=== PATIENT | male | born 1945 | race Two or more races ===

== ENCOUNTER 2018-12-30 12:28 | Emergency (ER) | payer MEDICAID ==
[~2018-12-30] VITALS: Ht 172.7 cm; Wt 88.5 kg
--- NOTE | 2018-12-30 12:40 | NUR ---
ED Nurse Note: Patient walked into ED c/o abdominal pain 01/22 for 1 week. patient denies having any nausea or vomiting. patient is ambulatory, a/o x4 breathing unlabored and even. patient reports he just recently came back from [place] on 12/27/18
[2018-12-30 12:47] VITALS: BP 131/71
[2018-12-30] MEDS ORDERED: Isovue-300 100ml vial INJ PRN (13:00)
[2018-12-30] MEDS ORDERED: OMEPRAZOLE40 M1 ORAL (13:06)
[2018-12-30] MEDS ORDERED: FLOMAX0.4 MG ORAL (13:06)
[2018-12-30] MEDS ORDERED: LISINOPRIL20 MG ORAL (13:06)
--- NOTE | 2018-12-30 13:15 | NUR ---
ED Nurse Note: Consent for CT with contrast obtained from the son, The patient gave verbal consent as well.
[2018-12-30 13:25] LABS: APPEARANCE,URINE CLOUDY; BILIRUBIN, URINE NEGATIVE (NEGATIVE); GLUCOSE, URINE (UA) NEGATIVE (NEGATIVE); KETONES,URINE 1+ (NEGATIVE); LEUKOCYTE ESTERASE ,URINE 1+ (NEGATIVE); NITRITE,URINE NEGATIVE (NEGATIVE); PH,URINE 5 (4.5-8.0); PROTEIN,URINE 2+ (NEGATIVE); UROBILINOGEN,URINE NORMAL MG/DL (0.0-1.0)
[2018-12-30 13:29] LABS: BASOPHILS % (AUTO) 1.2 % (0.0-2.0); EOSINOPHILS % (AUTO) 0.3 % (0.0-3.0); HEMATOCRIT 43.8 % (42.0-52.0); HEMOGLOBIN 14.9 G/DL (14.2-18.0); LYMPHOCYTES % (AUTO) 11.4 % (20.0-45.0); MEAN CORPUSCULAR VOLUME 92 FL (80-99); MONOCYTES % (AUTO) 8.4 % (1.0-10.0); NEUTROPHILS % (AUTO) 78.8 % (45.0-75.0); PLATELET COUNT 221 K/UL (150-450); RED BLOOD COUNT 4.75 M/UL (4.70-6.10); RED CELL DISTRIBUTION WIDTH 11.9 % (11.6-14.8); WHITE BLOOD COUNT 9.4 K/UL (4.8-10.8)
[2018-12-30 13:36] LABS: COLOR,URINE YELLOW
[2018-12-30 13:45] LABS: ANION GAP 11 mmol/L (5-15); BLOOD UREA NITROGEN 13 mg/dL (7-18); CALCIUM 9.4 MG/DL (8.5-10.1); CARBON DIOXIDE 27 MMOL/L (21-32); CHLORIDE 102 MMOL/L (98-107); CREATININE 1.2 MG/DL (0.55-1.30); POTASSIUM 3.8 MMOL/L (3.5-5.1); SODIUM 139 MMOL/L (136-145)
[2018-12-30 13:49] LABS: ALANINE AMINOTRANSFERASE 31 U/L (12-78); ALBUMIN 4.4 G/DL (3.4-5.0); ALBUMIN/GLOBULIN RATIO 1.4 (1.0-2.7); ALKALINE PHOSPHATASE 57 U/L (46-116); ASPARTATE AMINO TRANSFERASE 28 U/L (15-37); BILIRUBIN,TOTAL 0.4 MG/DL (0.2-1.0)
--- NOTE | 2018-12-30 13:55 | NUR ---
ED Nurse Note: patient went to CT
--- NOTE | 2018-12-30 14:12 | NUR ---
ED Nurse Note: patient came back from CT, son at bedside
--- NOTE | 2018-12-30 14:36 | Emergency Room Report ---
History of Present Illness General Chief Complaint: Diarrhea Source: Patient Present Illness HPI 73-year-old male with history of hyperlipidemia and gastroesophageal disease currently controlled with medication here complaining of 7 days of multiple bouts of diarrhea on daily basis. Patient is reporting some epigastric pain rating it 5 out of 10 without radiation denying nausea vomiting. Patient reports that he started having abdominal pain and diarrhea after eating a street taco 1 week ago. Denies alcohol intake, smoking, drug use. Denies any new medication. Denies recent travel, chest pain, shortness of breath, fever and chills, palpitation, lethargic, syncope. Patient reports that he has been having 3-4 bouts of nonbloody diarrhea every day and has been able to take oral hydration. Allergies: Coded Allergies: No Known Allergies (Unverified , 12/30/18) Patient History Past Medical History: see triage record Past Surgical History: unable to obtain Pertinent Family History: none Immunizations: UTD Reviewed Nursing Documentation: PMH: Agreed; PSxH: Agreed Nursing Documentation-PMH Past Medical History: No History, Except For Hx Hypertension: Yes Review of Systems All Other Systems: negative except mentioned in HPI Physical Exam Vital Signs Date Time Temp Pulse Resp B/P (MAP) Pulse Ox O2 Delivery O2 Flow Rate FiO2 12/30/18 12:32 98.8 93 17 134/74 (94) 98 Room Air Sp02 EP Interpretation: reviewed, normal General Appearance: normal inspection, well appearing, no apparent distress, alert, GCS 15 Head: normocephalic, atraumatic Eyes: bilateral eye normal inspection, bilateral eye PERRL ENT: normal ENT inspection, hearing grossly normal, normal pharynx Neck: normal inspection, full range of motion, supple Respiratory: normal inspection, chest non-tender, lungs clear, normal breath sounds, no respiratory distress, no wheezing Cardiovascular #1: normal inspection, regular rate, rhythm, no murmur, normal capillary refill Gastrointestinal: normal bowel sounds, no mass, no organomegaly, no peritonitis , no bruit, non-distended, guarding - Epigastric Rectal: deferred Musculoskeletal: normal inspection, back normal, digits/nails normal Neurologic: normal inspection, alert, oriented x3 Psychiatric: normal inspection, judgement/insight normal, memory normal Skin: normal inspection, normal color, no rash, warm/dry, palpation normal Lymphatic: normal inspection, no adenopathy Medical Decision Making PA Attestation All my diagnosis and treatment plans were reviewed ad discussed with my supervising physician Dr. Mtz Diagnostic Impression: Primary Impression: Colitis Additional Impressions: Prostatitis GERD (gastroesophageal reflux disease) ER Course 73-year-old male with history of hyperlipidemia and gastroesophageal disease currently controlled with medication here complaining of 7 days of multiple bouts of diarrhea on daily basis. Patient is reporting some epigastric pain rating it 5 out of 10 without radiation denying nausea vomiting. Patient reports that he started having abdominal pain and diarrhea after eating a street taco 1 week ago. Denies alcohol intake, smoking, drug use. Denies any new medication. Denies recent travel, chest pain, shortness of breath, fever and chills, palpitation, lethargic, syncope. Patient reports that he has been having 3-4 bouts of nonbloody diarrhea every day and has been able to take oral hydration. Ddx considered but are not limited to: appendicitis, cholycisitis, gastritis, gasthroentritis, UTI, pylonephritis, SBO, diverticulitis, influenza with GI manifestation, OK, prostatitis, Vital signs: are WNL, pt. is afebrile H&PE are most consistent with: Colitis, prostatitis, GERD ORDERS: abdominal CT, abdominal pain set, EKG, Pepcid. Omeprazole, Cipro ED INTERVENTIONS: Pepcid NS bolus DISCHARGE: At this time pt. is stable for d/c to home. Will provide printed patient care instructions, and any necessary prescriptions. Care plan and follow up instructions have been discussed with the patient prior to discharge. After talking to the radiologist patient has mild colitis without complication patient to follow-up with his primary care physician as well as urologist due to prostate infection take medication as directed I explained to Cipro may increase his diarrhea however it is necessary for his prostatitis CT/MRI/US Diagnostic Results CT/MRI/US Diagnostic Results : Imaging Test Ordered: Abdominal CT no contrast Impression collitis with no other abnormality I spoke on the phone with radiologist Last Vital Signs Date Time Temp Pulse Resp B/P (MAP) Pulse Ox O2 Delivery O2 Flow Rate FiO2 12/30/18 12:47 98.8 98 16 131/71 98 Room Air Disposition: HOME, SELF-CARE Condition: Stable Scripts Omeprazole (OMEPRAZOLE) 20 Mg Capsule. 20 MG ORAL DAILY, #30 CAP Prov: Wyatt Beard 12/30/18 Ciprofloxacin* (CIPRO*) 500 Mg Tablet 500 MG PO BID for 14 Days, #28 TAB Prov: Wyatt Beard 12/30/18 Referrals: NON PHYSICIAN (PCP) Patient Instructions: Gastritis, Adult, Prostatitis, [id number], Viral Gastroenteritis, Adult Additional Instructions: Take medication as directed follow-up with a primary care provider for testing of possible H. pylori take your antibiotic for your prostate infection follow- up with your urologist keep a BRAT diet entailing banana rice applesauce piece of toast avoid spicy food avoid acidic food avoid red meats Wyatt Beard Dec 30, 2018 14:36
[2018-12-30] MEDS ORDERED: CIPRO500 MG PO (14:37)
[2018-12-30] MEDS ORDERED: OMEPRAZOLE20 M2 ORAL (14:37)
--- NOTE | 2018-12-30 14:44 | Diagnostic Imaging Report ---
Clinical Indication: Abdominal pain for one week Technique: No oral contrast utilized, per emergency room physician request IV administration nonionic contrast. Venous phase spiral acquisition obtained through the abdomen and pelvis. Multiplanar reconstructions were generated. Total dose length product 870.19 mGycm. CTDIvol(s) 17.25 mGy. Dose reduction achieved using automated exposure control Comparison: none Findings: Lack of enteric contrast limits assessment of the GI tract. Appendix is slightly prominent, measuring up to 7 mm in diameter and demonstrating slight mural enhancement. There is no rodriguez infiltration of the periappendiceal fat. There is a equivocal slight wall thickening of the ascending colon and slight infiltration of the pericolonic fat adjacent to the ascending colon. There is also suggestion of mild wall thickening of the sigmoid colon, which is fluid-filled. There is no perisigmoid inflammation. No evidence of diverticulosis or diverticulitis. Prominent but not frankly dilated proximal small bowel loops are noted, without evidence of definite transition point. The distal ileum is also slightly prominent. No free or loculated intraperitoneal gas or fluid is evident. Calcifications, presumably granulomatous nodes, are seen in the mesenteric root. The distal esophagus and stomach are unremarkable.. The liver is mildly hypoattenuating. No focal abnormality. The gallbladder contains a gallstone. No biliary ductal dilatation. The pancreas, spleen, adrenals are unremarkable. There is an accessory splenule. The right kidney demonstrates an exophytic subcentimeter low-attenuation lesion which is too small to characterize. The right kidney demonstrates an interpolar region cyst and a subcentimeter lower pole low-attenuation lesion which is too small to characterize. No retroperitoneal or mesenteric mass or adenopathy. The prostate is markedly enlarged, measuring 6 cm transverse diameter. The included lung bases demonstrate a calcified granuloma within the right middle lobe. There are dependent atelectatic changes. The bones are unremarkable Impression: Limited assessment of the GI tract, due to lack of enteric contrast administration Suggestion of slight wall thickening of the ascending and sigmoid colon, could indicate colitis. Correlate with clinical findings Slightly prominent appendix. Doubtful significance, very early acute appendicitis not completely excludable. Possible mild fatty liver Cholelithiasis Prostatomegaly Evidence old granulomatous disease within the right lung and mesenteric root Right renal cysts. Subcentimeter low-attenuation renal lesions, too small to characterize, most likely benign simple cysts Pulmonary atelectatic changes Findings discussed by phone with Nurse practitioner Wyatt Beard The CT scanner at [facility] is accredited by the [employer] and the scans are performed using protocols designed to limit radiation exposure to as low as reasonably achievable to attain images of sufficient resolution adequate for diagnostic evaluation.
[2018-12-30 15:05] VITALS: BP 128/68
--- NOTE | 2018-12-30 15:05 | NUR ---
ER DISCHARGE NOTE: Patient is cleared to be discharged per JOSE ELIAS ALLAN, pt is aox4, on room air, with stable vital signs. pt was given dc and prescription instructions, pt was able to verbalize understanding, pt id band and iv site removed without complications. pt is able to ambulate with steady gait with his son. pt took all belongings.
== END 2018-12-30 15:05 | disposition home or self-care (01) ==
LOC: EMR 13:00
DX: K52.9 Noninfective gastroenteritis and colitis, unspecified (principal); K21.9 Gastro-esophageal reflux disease without esophagitis; N41.9 Inflammatory disease of prostate, unspecified; E78.5 Hyperlipidemia, unspecified; I10 Essential (primary) hypertension
CPT/HCPCS: 36415; 74177; 80053; 81003; 83690; 85025; 87086; 96361; 96374; 99284; Q9967; S0028